=== PATIENT | female | born 1975 | race Caucasian/White ===

== ENCOUNTER → 2021-06-27 11:14 | Outpatient (CLI) | payer OTHER, SELFPAY ==
--- NOTE | ~2021-06-27 | MM_ITS ---
EXAMINATION: MM screening [facility] BI w vamsi HISTORY: Screening TECHNIQUE: Craniocaudal and mediolateral oblique 3-D tomosynthesis images were obtained and synthetic 2-D images were generated. CAD analysis was submitted and interpreted. COMPARISON: No prior mammogram is available for comparison at this institution. BREAST PARENCHYMAL COMPOSITION: The breasts are extremely dense, which lowers the sensitivity of mamm ography FINDINGS: There are clusters of calcifications in the upper outer and lower central right breast. The re are no suspicious masses, calcifications or architectural distortion in the left breast to suggest malignancy. IMPRESSION: 1. Clusters of right breast calcifications. 2. Comparison to previous outside mammograms recommended. BI-RADS Category 0: Incomplete: Needs additional imaging evaluation. Reviewed, dictated and finalized at location A. ATION ADMINISTRATIVE ASSISTANT
== END ==
PROVIDERS: PCP Family Medicine; Visit Provider Family Medicine
DX: Z12.31 Encounter for screening mammogram for malignant neoplasm of breast (principal); R92.8 Other abnormal and inconclusive findings on diagnostic imaging of breast
CPT/HCPCS: 77063; 77067

== ENCOUNTER → 2021-07-11 08:14 | Outpatient (CLI) | payer OTHER, SELFPAY ==
--- NOTE | ~2021-07-11 | MMUS_ITS ---
EXAMINATION: MM diagnostic mammo unilat RT, US breast RT complete HISTORY: Upper outer and lower central right breast calcifications reported on 06/27/2021 screening parisa mogram TECHNIQUE: ML view. Magnification views were performed in ML, MLO and CC projections.. CAD analysis w as submitted and interpreted. High resolution complete right breast ultrasound including all 4 quadra nts and subareolar area was performed. COMPARISON: 06/28/2019 bilateral screening mammogram BREAST PARENCHYMAL COMPOSITION: The breasts are extremely dense, which lowers the sensitivity of mamm ography. FINDINGS: MAMMOGRAPHIC FINDINGS: There are grouped and scattered solitary benign microcalcifications. Upper outer quadrant grouped lupillo rocalcifications are uniform in size, circular shape and density consistent with benign process. No s uspicious linear or branching microcalcifications are noted. The extremely dense tissue may obscure masses. Complete right breast ultrasound examination was perfo rmed. ULTRASOUND: No suspicious mass or shadowing, cyst or other significant finding is detected. IMPRESSION: 1. Benign calcifications 2. Routine mammographic screening is recommended. BI-RADS Category 2: Benign finding(s). Reviewed, dictated and finalized at location A. IMPRESSION: 1. Benign calcifications 2. Routine mammographic screening is recommended. BI-RADS Category 2: Benign finding(s).
== END ==
PROVIDERS: PCP Family Medicine; Visit Provider Family Medicine
DX: R92.8 Other abnormal and inconclusive findings on diagnostic imaging of breast (principal)
CPT/HCPCS: 76641; 77065

== ENCOUNTER → 2022-08-24 15:16 | Outpatient (CLI) | payer OTHER, SELFPAY ==
--- NOTE | ~2022-08-24 | MM_ITS ---
EXAMINATION: MM screening [facility] BI w vamsi HISTORY: Screening mammogram TECHNIQUE: Craniocaudal and mediolateral oblique 3-D tomosynthesis images were obtained and synthetic 2-D images were generated. CAD analysis was submitted and interpreted. COMPARISON: 07/11/2021, 06/27/2021, 05/13/2020, 05/04/2020 BREAST PARENCHYMAL COMPOSITION: The breasts are extremely dense, which lowers the sensitivity of mamm ography. FINDINGS: Scattered benign-appearing calcifications are present. No suspicious mass, calcification, o r architectural distortion are identified in either breast to suggest malignancy. There has been no s uspicious interval change. IMPRESSION: 1. No mammographic evidence of malignancy. 2. Recommend routine screening mammography in one year. BI-RADS Category 2: Benign finding(s). Reviewed, dictated and finalized at location A.
== END ==
PROVIDERS: PCP Physician Assistant; Visit Provider Physician Assistant
DX: Z12.31 Encounter for screening mammogram for malignant neoplasm of breast (principal)
CPT/HCPCS: 77063; 77067

== ENCOUNTER 2023-08-10 06:57 | Emergency (ER) | payer OTHER, SELFPAY ==
--- NOTE | ~2023-08-10 | XR_ITS ---
XR shoulder LT min 2V 08/10/2023 08:29 Indication: Left shoulder pain Procedure: 4 views left shoulder Comparison: No prior studies for comparison. Findings: There is mild osteoarthritis of the left glenohumeral joint. There is calcific tendinopathy . No fracture or traumatic malalignment. No foreign bodies. Impression: 1: Mild osteoarthritis of the left glenohumeral joint. Reviewed, dictated and finalized at location B. Impression: 1: Mild osteoarthritis of the left glenohumeral joint.
[2023-08-10 07:00] VITALS: BP 133/81; PULSE 82; RESP 16; TEMP 36.6; O2SAT 100
--- NOTE | 2023-08-10 07:49 | ECG_ITS ---
SEE SCANNED COPY FOR CONFIRMED REPORT MTDD
--- NOTE | 2023-08-10 07:54 | ED.GENADULT ---
HPI - General Adult General Chief complaint: Unspecified Stated complaint: L shoulder pain, L neck pain, nausea Time Seen by Provider: 08/10/23 07:28 History of Present Illness HPI narrative: Patient is a 47-year-old female who presents ER with pain to left shoulder. Sudden onset last night around 10:30 p.m.. Aching over the left deltoid. Also has aching trapezius musculature of her left neck. No chest pain or shortness of breath. No exertional chest discomfort. Denies fevers or chills or sweats. No known injury. Has not tried any pain medication. Symptoms worsen with certain types of movements of her left arm. Patient reports mild nausea. No pain with deep breath. Related Data Allergies Allergy/AdvReac Type Severity Reaction Status Date / Time Penicillins Allergy Unknown hives Verified 03/06/16 15:08 Review of Systems Constitutional: Constitutional: Reports no additional constitutional complaints ENT: Reports system reviewed and no additional complaints, except as documented Cardiovascular: Cardiovascular: Reports no additional cardiovascular complaints Respiratory: Respiratory: Reports no additional respiratory complaints Gastrointestinal: Gastrointestinal: Reports no additional gastrointestinal complaints Musculoskeletal: Musculoskeletal: Reports arthralgias, Denies joint swelling, Reports muscle cramps and Denies numbness PMFSH Past Medical History Medical History (Updated 08/10/23 @ 08:34 by Jose L Chavis MD) Type 1 diabetes mellitus without complications Surgical History Surgical History (Updated 08/10/23 @ 08:22 by Jose L Chavis MD) History of cholecystectomy Social History Social History Smoking status: Never smoker Alcohol intake: current Exam Narrative: GENERAL: Well-appearing, well-nourished, and in no acute distress. HEAD: Normocephalic, atraumatic. ENT: Mucous membranes moist. NECK: Supple. Mild tenderness over left trapezius musculature. CHEST: Clear to auscultation. No respiratory distress. HEART: Regular rate and rhythm. Normal peripheral pulses. EXTREMITIES: Normal range of motion. No edema. SKIN: Warm, dry, no rash. NEURO: Alert and oriented x3. PSYCH: Normal mood and affect. Course Course Emergency Course: Patient resting comfortably. Toradol for pain. EKG reassuring. This is felt to be musculoskeletal in nature and not cardiac. Discharge home. Vital Signs Vital signs: Vital Signs Temperature 97.8 F 08/10/23 07:00 Pulse Rate 82 08/10/23 07:00 Respiratory Rate 16 08/10/23 07:00 Blood Pressure 133/81 08/10/23 07:00 Pulse Oximetry 100 08/10/23 07:00 Oxygen Delivery Room Air 08/10/23 07:00 Temperature 97.8 F 08/10/23 07:00 Pulse Rate 66 08/10/23 08:13 Respiratory Rate 16 08/10/23 07:00 Blood Pressure 133/81 08/10/23 07:00 Pulse Oximetry 100 08/10/23 08:08 Oxygen Delivery Room Air 08/10/23 07:00 Medical Decision Making Vital Signs Vital Signs: Vital Signs Temperature 97.8 F 08/10/23 07:00 Pulse Rate 82 08/10/23 07:00 Respiratory Rate 16 08/10/23 07:00 Blood Pressure 133/81 08/10/23 07:00 Pulse Oximetry 100 08/10/23 07:00 Oxygen Delivery Room Air 08/10/23 07:00 Temperature 97.8 F 08/10/23 07:00 Pulse Rate 66 08/10/23 08:13 Respiratory Rate 16 08/10/23 07:00 Blood Pressure 133/81 08/10/23 07:00 Pulse Oximetry 100 08/10/23 08:08 Oxygen Delivery Room Air 08/10/23 07:00 Imaging Data Radiologist's impression: ITS Impressions Shoulder X-Ray 08/10/23 08:31 Impression: 1: Mild osteoarthritis of the left glenohumeral joint. ECG Data EKG #1: ECG completion date: 08/10/23 ECG completion time: 07:50 EKG Interpretation: bradycardia (52), sinus rhythm, no ST changes, normal QRS, normal QT and NL axis Discharge Plan Discharge Clinical Impression: Muscular aches, Arthritis of shoulder Patient Disposition: Home, Self-Care Condition: Stable Instructions: Musculoskeletal Pain (ED) Additional Instructions: Your EKG appeared normal. Take anti-inflammatory medication muscle relaxers to help with your muscle aches. Return to the ER if you have exertional chest pain, you lose consciousness, or you have additional concerns. Prescriptions: New cyclobenzaprine 10 mg tablet 10 mg PO TID PRN (Reason: muscle spasm) Qty: 20 0RF naproxen 375 mg tablet 375 mg PO BID Qty: 14 0RF Follow-up/Referrals: Dmitri,LAZARA Britton [Non-Staff] - 1 Week
[2023-08-10] MEDS: KETOROLAC (*BKC) 60 MG/2 ML VIAL IM (07:57)
[2023-08-10 08:08] VITALS: O2SAT 100
--- NOTE | 2023-08-10 08:10 | PC.NURSE ---
Pt appears anxious, questioning every MD order asking if it is necessary. RN informed pt the need to complete orders to find out why she is having pain
[2023-08-10 08:13] VITALS: PULSE 66
[2023-08-10 09:01] VITALS: BP 114/88; PULSE 67; RESP 18; TEMP 36.7; O2SAT 100
== END 2023-08-10 09:04 | disposition home or self-care (01) ==
PROVIDERS: Emergency Provider Emergency Medicine
DX: M19.012 Primary osteoarthritis, left shoulder (principal); M54.2 Cervicalgia; E10.9 Type 1 diabetes mellitus without complications; Z90.49 Acquired absence of other specified parts of digestive tract; R94.31 Abnormal electrocardiogram [ECG] [EKG]
CPT/HCPCS: 73030; 93005; 96372; 99283; J1885

== ENCOUNTER 2024-01-21 10:40 | Outpatient (CLI) | payer OTHER, SELFPAY ==
--- NOTE | ~2024-01-21 | US_ITS ---
EXAMINATION: US pelvic complete w TV DATE: 01/21/2024 11:04 INDICATION: N92.0 - Excessive and frequent menstruation with regular ... TECHNIQUE: Multiple transabdominal and endovaginal sonographic images of the pelvis were obtained. COMPARISON: CT abdomen pelvis 11/14/2016 FINDINGS: Uterus: 9.5 x 4.9 x 4.3 cm, anteverted and retroflexed. Somewhat heterogeneous uterine parenchyma. En dometrial complex measures 5 mm. Multiple nabothian cysts. Right Ovary: 1.9 x 2.0 x 1.9 cm. Vascular flow is present. No adnexal mass. Left Ovary: Not visualized. There is no free fluid in the pelvis. IMPRESSION: Heterogeneous uterine parenchyma, as can be seen with adenomyosis in the appropriate clinical context . Left ovary not visualized. Reviewed, dictated and finalized at location K. IMPRESSION: Heterogeneous uterine parenchyma, as can be seen with adenomyosis in the approp riate clinical context. Left ovary not visualized.
== END 2024-01-21 10:41 | disposition home or self-care (01) ==
PROVIDERS: PCP Obstetrics & Gynecology; Visit Provider Obstetrics & Gynecology
DX: N80.03 Adenomyosis of the uterus (principal); N92.0 Excessive and frequent menstruation with regular cycle
CPT/HCPCS: 76830; 76856